=== PATIENT | male | born 1985 | race African-American/Black ===

== ENCOUNTER 2020-04-09 16:39 | Emergency (ER) | payer OTHER ==
[~2020-04-09] VITALS: Ht 183.5 cm; Wt 186.0 kg
[2020-04-09 16:54] VITALS: BP 160/93
[2020-04-09] MEDS ORDERED: Ketorolac 30mg Inj IM ONE (17:00)
[2020-04-09] MEDS ORDERED: Methocarbamol 750mg tab ORAL ONE ×2 (17:00→17:03)
[2020-04-09] MEDS ORDERED: Ketorolac 30mg Inj ONE (17:01)
--- NOTE | 2020-04-09 18:02 | Diagnostic Imaging Report ---
EXAM: CT Lumbar Spine Without Intravenous Contrast CLINICAL HISTORY: PAIN TECHNIQUE: Axial computed tomography images of the lumbar spine without intravenous contrast. CTDI is 41.9 mGy and DLP is 1748.3 mGy-cm. One or more of the following dose reduction techniques were used: automated exposure control, adjustment of the mA and/or kV according to patient size, use of iterative reconstruction technique. Coronal and sagittal reformatted images were created and reviewed. Axial reformatted images were created and reviewed. COMPARISON: No relevant prior studies available. FINDINGS: Vertebrae: Greater than expected for age multilevel degenerative disc and facet findings, overall mild in severity. No acute fracture. Discs/spinal canal/neural foramina: See above. Soft tissues: Unremarkable. IMPRESSION: 1. No acute abnormality definitively identified to account for patient presentation. 2. Greater than expected for age multilevel degenerative disc and facet findings, overall mild in severity. 3. Otherwise unremarkable study.
--- NOTE | 2020-04-09 18:08 | Emergency Room Report ---
History of Present Illness General Chief Complaint: Lower Back Pain or Injury Source: Patient Present Illness HPI 35-year-old male with no known significant past medical history colostomy bag who is morbidly obese here complaining of low back pain that started earlier today after bending forward and trying to reach something on the ground and feeling something pull in his back. Denies any pain radiation rating a 7 out of 10, denying any tingling or numbness, any urinary bowel incontinence. Denies saddle paresthesia. Denies any direct fall or injury to the back. Reports that the pain is worse when leaning forward and trying to bend. With walking the pain improves. Has taken regular ibuprofen with minimal relief. Denies other injuries. Patient is neurovascularly intact. Denies any pain radiation of the suprapubic area, denies any hematuria. Denies tobacco smoke, alcohol intake, and other drug use. Allergies: Coded Allergies: No Known Allergies (Unverified , 04/09/20) COVID-19 Screening Contact w/high risk pt: No Experienced COVID-19 symptoms?: No COVID-19 Testing performed CONSULTING NETWORKING ENGINEER: No Patient History Past Medical History: see triage record Past Surgical History: none Pertinent Family History: none Immunizations: UTD Reviewed Nursing Documentation: PMH: Agreed; PSxH: Agreed Review of Systems All Other Systems: negative except mentioned in HPI Physical Exam Vital Signs Date Time Temp Pulse Resp B/P (MAP) Pulse Ox O2 Delivery O2 Flow Rate FiO2 04/09/20 16:47 98.6 99 22 165/98 (120) 95 Room Air Sp02 EP Interpretation: reviewed, normal General Appearance: alert, GCS 15, non-toxic, mild distress, obese Head: normocephalic, atraumatic Eyes: bilateral eye normal inspection, bilateral eye PERRL Neck: full range of motion, supple Respiratory: chest non-tender, lungs clear, normal breath sounds, speaking full sentences Cardiovascular #1: regular rate, rhythm, no edema Gastrointestinal: normal bowel sounds, non tender, soft, non-distended, no guarding, no rebound Rectal: deferred Genitourinary: no CVA tenderness Musculoskeletal: back normal, no calf tenderness, no lower extremity edema, non -tender Neurologic: alert, motor strength/tone normal, oriented x3, sensory intact, responsive, speech normal Psychiatric: judgement/insight normal, memory normal, mood/affect normal, no suicidal/homicidal ideation Skin: no rash Lymphatic: no adenopathy Medical Decision Making PA Attestation All diagnoses and treatment plans were reviewed and discussed with my supervising physician Dr. Combs Diagnostic Impression: Primary Impression: Lumbar strain Additional Impression: Degenerative lumbar disc ER Course 35-year-old male with no known significant past medical history colostomy bag who is morbidly obese here complaining of low back pain that started earlier today after bending forward and trying to reach something on the ground and feeling something pull in his back. Denies any pain radiation rating a 7 out of 10, denying any tingling or numbness, any urinary bowel incontinence. Denies saddle paresthesia. Denies any direct fall or injury to the back. Reports that the pain is worse when leaning forward and trying to bend. With walking the pain improves. Has taken regular ibuprofen with minimal relief. Denies other injuries. Patient is neurovascularly intact. Denies any pain radiation of the suprapubic area, denies any hematuria. Denies tobacco smoke, alcohol intake, and other drug use. Ddx considered but are not limited to: Lumbar spine sprain, strain, fracture, contusion, neuropathy Vital signs: are WNL, pt. is afebrile H&PE are most consistent with: Lumbar strain ORDERS: Lumbar spine CT scan no contrast, Robaxin, ibuprofen, lidocaine patch ER intervention: Toradol, Robaxin, lidocaine patch DISCHARGE: At this time pt. is stable for d/c to home. Will provide printed patient care instructions, and any necessary prescriptions. Care plan and follow up instructions have been discussed with the patient prior to discharge. Patient take medication as directed follow-up primary care provider, worsening symptom return to emergency room also discussed degenerative disc changes and has been noted however patient does know that needs to follow-up with primary doctor in this regard. CT/MRI/US Diagnostic Results CT/MRI/US Diagnostic Results : Imaging Test Ordered: CT L-spine no contrast Impression FINDINGS: Vertebrae: Greater than expected for age multilevel degenerative disc and facet findings, overall mild in severity. No acute fracture. Discs/spinal canal/neural foramina: See above. Soft tissues: Unremarkable. IMPRESSION: 1. No acute abnormality definitively identified to account for patient presentation. 2. Greater than expected for age multilevel degenerative disc and facet findings , overall mild in severity. 3. Otherwise unremarkable study. Last Vital Signs Date Time Temp Pulse Resp B/P (MAP) Pulse Ox O2 Delivery O2 Flow Rate FiO2 04/09/20 16:54 98.6 83 20 160/93 96 Room Air Disposition: HOME, SELF-CARE Condition: Stable Scripts Lidocaine Patch* (Lidoderm Patch*) 1 Each Adh..patch 1 PATCH TOPIC DAILY, #30 PATCH Patch(es) may remain in place for up to 12 hours in any 24-hour period. Prov: Cristina Rebollar 04/09/20 Ibuprofen (Ibu) 800 Mg Tablet 800 MG PO TID, #30 TAB Prov: Cristina Rebollar 04/09/20 Methocarbamol* (ROBAXIN-500*) 500 Mg Tablet 500 MG ORAL TID PRN for For Pain, #15 TAB 0 Refills Prov: Cristina Rebollar 04/09/20 Patient Instructions: Low Back Sprain With [facility] Additional Instructions: Take medication as directed, follow-up primary care provider, avoid strenuous physical activity, worsening symptoms return to the emergency room Cristina Rebollar Apr 09, 2020 18:08
[2020-04-09] MEDS ORDERED: IBU800 MG PO (18:09)
[2020-04-09] MEDS ORDERED: LIDODERM700 M1 TOPIC (18:09)
[2020-04-09] MEDS ORDERED: ROBAXIN-500MG ORAL (18:09)
[2020-04-09 18:12] VITALS: BP 165/97
== END 2020-04-09 18:12 | disposition home or self-care (01) ==
LOC: EMR 18:12
DX: S39.012A Strain of muscle, fascia and tendon of lower back, initial encounter (principal); M51.36 Other intervertebral disc degeneration, lumbar region; E66.01 Morbid (severe) obesity due to excess calories; X58.XXXA Exposure to other specified factors, initial encounter; Y92.9 Unspecified place or not applicable; Z68.43 Body mass index [BMI] 50.0-59.9, adult
CPT/HCPCS: 72131; 96372; J1885; Z7502; 99284